=== PATIENT | male | born 1980 ===

== ENCOUNTER 2017-07-27 09:02 | Emergency (ER) | payer OTHER ==
[2017-07-27 09:04] VITALS: BMI 29.3
[2017-07-27 09:05] VITALS: BP 133/86; PULSE 69; RESP 16; TEMP 98.2; O2SAT 99
--- NOTE | 2017-07-27 10:55 | ED PDOC ---
Upper Extremity Pain/Injury Time Seen by Provider: 07/27/17 09:31 Chief Complaint (Nursing): Upper Extremity Problem/Injury Chief Complaint (Provider): Upper Extremity Problem/Injury History Per: Patient History/Exam Limitations: no limitations Onset/Duration Of Symptoms: Other (x2 weeks) Additional Complaint(s): 37 y/o male presents to the ED complaining of bilateral upper arm pain x 2weeks. Pain is worse with movement and lifting of both arms. Reports taking Motrin and an injection (form his country but doesn't recall the name). Denies trauma, weakness, paresthesia or any further medical complaints. Past Medical History Reviewed: Historical Data, Nursing Documentation, Vital Signs Vital Signs: Last Vital Signs Temp 98.2 F 07/27/17 09:04 Pulse 69 07/27/17 09:04 Resp 16 07/27/17 09:04 BP 133/86 07/27/17 09:04 Pulse Ox 99 07/27/17 09:04 - Medical History PMH: No Chronic Diseases - Surgical History Surgical History: No Surg Hx - Family History Family History: States: Unknown Family Hx - Social History Current smoker - smoking cessation education provided: No (Never Smoked) Alcohol: Social Drugs: Denies - Home Medications Home Medications: Ambulatory Orders Medication Instructions Recorded Cyclobenzaprine [Cyclobenzaprine 10 mg PO TID PRN #15 tab 07/27/17 HCl] Naproxen [Naprosyn] 500 mg PO BID PRN #15 tablet 07/27/17 - Allergies Allergies/Adverse Reactions: Allergies Allergy/AdvReac Type Severity Reaction Status Date / Time No Known Allergies Allergy Verified 07/27/17 09:41 Review of Systems ROS Statement: Except As Marked, All Systems Reviewed And Found Negative (As per HPI, otherwise negative) Constitutional: Negative for: Weakness (or paresthesias) Musculoskeletal: Positive for: Arm Pain (bilateral upper arm pain) Physical Exam - Reviewed Nursing Documentation Reviewed: Yes Vital Signs Reviewed: Yes - Physical Exam Appears: Positive for: Non-toxic, No Acute Distress Head Exam: Positive for: ATRAUMATIC, NORMAL INSPECTION, NORMOCEPHALIC Skin: Positive for: Normal Color, Warm, Dry Eye Exam: Positive for: EOMI, Normal appearance, PERRL ENT: Positive for: Normal ENT Inspection Neck: Positive for: Normal, Painless ROM, Supple Cardiovascular/Chest: Positive for: Regular Rate, Rhythm. Negative for: Murmur Respiratory: Positive for: Normal Breath Sounds. Negative for: Accessory Muscle Use, Respiratory Distress Gastrointestinal/Abdominal: Positive for: Normal Exam, Bowel Sounds, Soft. Negative for: Tenderness Back: Positive for: Normal Inspection Extremity: Positive for: Normal ROM (Full range of motion of shoulder and elbow bilaterally), Tenderness (Minimal tenderness ot palapation of bilateral upper arms), Other (no edema, erythema or lesions noted in upper extremity) Neurologic/Psych: Positive for: Alert, Oriented (x3) - ECG O2 Sat by Pulse Oximetry: 99 (RA) Pulse Ox Interpretation: Normal Medical Decision Making Medical Decision Making: Time: 09:48 Initial Impression: Musculoskeletal pain Plan: Flexeril 10mg PO Ibuprofen 600mg PO Reevalaution Scribe Attestation: Documented by Vikki Davey acting as a scribe for France Chadwick MD. Scribe Attestation: All medical record entries made by the Scribe were at my direction and personally dictated by me. I have reviewed the chart and agree that the record accurately reflects my personal performance of the history, physical exam, medical decision making, and the department course for this patient. I have also personally directed, reviewed, and agree with the discharge instructions and disposition. Disposition - Clinical Impression Clinical Impression: Bilateral arm pain - Disposition [facility]errals: [facility] [Outside] Disposition: Routine/Home Disposition Time: 12:25 Condition: STABLE Prescriptions: Cyclobenzaprine [Cyclobenzaprine HCl] 10 mg PO TID PRN #15 tab PRN Reason: Pain Naproxen [Naprosyn] 500 mg PO BID PRN #15 tablet PRN Reason: Pain, Moderate (4-7) Instructions: Muscle and Bone Pain (DC) Forms: [employer] (Australian) Print Language: GEORGIAN
== END 2017-07-27 13:37 | disposition home or self-care (01) ==
LOC: H.ER 09:02
DX: M79.622 Pain in left upper arm (principal); M79.621 Pain in right upper arm

== ENCOUNTER 2017-08-26 17:50 | Emergency (ER) | payer OTHER ==
[2017-08-26 17:51] VITALS: BMI 29.3
[2017-08-26 18:12] VITALS: RESP 18
[2017-08-26] MEDS ORDERED: Tdap Vaccine 0.5 ml Vial (10-64 yrs) IM ONE ×2 (18:56→19:04)
[2017-08-26] MEDS ORDERED: Lidocaine 1% w Epi 1:100,000 Inj INJ STA (18:56)
[2017-08-26] MEDS ORDERED: Lidocaine 1% w Epi 1:100,000 Inj ONE (18:58)
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
[2017-08-26 20:35] VITALS: BP 138/83; PULSE 82; TEMP 98.3; O2SAT 98
== END 2017-08-26 20:35 | disposition home or self-care (01) ==
LOC: H.ER 17:50
DX: S01.81XA Laceration without foreign body of other part of head, initial encounter (principal); W19.XXXA Unspecified fall, initial encounter; Y92.89 Other specified places as the place of occurrence of the external cause

== ENCOUNTER 2017-08-28 13:26 | Emergency (ER) | payer SELFPAY ==
[2017-08-28 13:26] VITALS: BMI 29.3
[2017-08-28 14:06] VITALS: BP 111/70; PULSE 56; RESP 16; TEMP 98.2; O2SAT 99
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
== END 2017-08-28 15:16 | disposition home or self-care (01) ==
LOC: H.ER 13:26
DX: Z48.00 Encounter for change or removal of nonsurgical wound dressing (principal)

== ENCOUNTER 2017-09-02 09:14 | Emergency (ER) | payer OTHER ==
[2017-09-02 10:04] VITALS: BP 116/75; PULSE 75; TEMP 98; O2SAT 97
[2017-09-02 10:06] VITALS: BMI 30.2
--- NOTE | 2017-09-02 10:15 | ED PDOC ---
HPI: Wound Care - HPI Time Seen by Provider: 09/02/17 10:14 Chief Complaint (Nursing): Wound Check Chief Complaint (Provider): suture removal History Per: Patient Additional Complaint(s): 37-year-old male presents for staple and suture removal. Patient was seen last week for repair of laceration to right side of forehead. He denies any pain, drainage or bleeding from the affected area. Tetanus is up-to-date. PMD: none Past Medical History Reviewed: Historical Data, Nursing Documentation, Vital Signs Vital Signs: Last Vital Signs Temp 98 F 09/02/17 10:02 Pulse 75 09/02/17 10:02 Resp BP 116/75 09/02/17 10:02 Pulse Ox 97 09/02/17 10:02 - Medical History PMH: No Chronic Diseases - Surgical History Surgical History: No Surg Hx - Family History Family History: States: No Known Family Hx - Living Arrangements Living Arrangements: With Family - Social History Current smoker - smoking cessation education provided: No Alcohol: None Drugs: Denies - Immunization History Hx Tetanus Toxoid Vaccination: Yes - Home Medications Home Medications: Ambulatory Orders Medication Instructions Recorded Cyclobenzaprine [Cyclobenzaprine 10 mg PO TID PRN #15 tab 07/27/17 HCl] Naproxen [Naprosyn] 500 mg PO BID PRN #15 tablet 07/27/17 Clindamycin [Cleocin] 1 tab PO QID #28 cap 08/26/17 Ibuprofen [Motrin Tab] 800 mg PO Q8 PRN #20 tab 08/26/17 - Allergies Allergies/Adverse Reactions: Allergies Allergy/AdvReac Type Severity Reaction Status Date / Time No Known Allergies Allergy Verified 09/02/17 10:06 Review of Systems ROS Statement: Except As Marked, All Systems Reviewed And Found Negative Constitutional: Negative for: Fever Skin: Positive for: Other (removal of sutures and shaheen from laceration to forehead) Physical Exam - Reviewed Nursing Documentation Reviewed: Yes Vital Signs Reviewed: Yes - Physical Exam Appears: Positive for: Well, Non-toxic, No Acute Distress Head Exam: Positive for: NORMOCEPHALIC (Well-healed sutured and stapled laceration noted to right forehead, no infection, neurovascular intact) Skin: Negative for: Rash Eye Exam: Positive for: Normal appearance Neurologic/Psych: Positive for: Alert, Oriented - ECG O2 Sat by Pulse Oximetry: 97 Pulse Ox Interpretation: Normal Medical Decision Making Medical Decision Makin37 year old here for suture and staple removal All sutures and shaheen removed from laceration without difficulty. Wound is well-healed. Steri-Strips applied. Patient given wound care instructions. Disposition - Clinical Impression Clinical Impression: Visit for suture removal - Patient ED Disposition Is Patient to be Admitted: No Counseled Patient/Family Regarding: Diagnosis, Need For Followup - Disposition Referrals: [facility] [Outside] Disposition: Routine/Home Disposition Time: 10:53 Condition: STABLE Additional Instructions: Keep wound clean and dry. Allow steri-strips to fall off on their own. Follow up as needed with primary care doctor. Instructions: Stitches Removal Forms: [employer] (Mexican)
== END 2017-09-02 11:44 | disposition home or self-care (01) ==
LOC: H.ER 09:14
DX: Z48.02 Encounter for removal of sutures (principal)